=== PATIENT | male | born 1990 | race Caucasian/White ===

== ENCOUNTER 2022-01-03 19:52 | Emergency (ER) | payer BC, SELFPAY ==
[2022-01-03 20:14] VITALS: BP 129/80; PULSE 91; RESP 16; TEMP 36.8; O2SAT 100
--- NOTE | 2022-01-03 20:42 | ED.WOUNDLAC ---
HPI - Wound/Laceration General Chief Complaint: Wound/Laceration Stated Complaint: right finger laceration x 3 days ago Time Seen by Provider: 01/03/22 20:09 History of Present Illness HPI narrative: Patient is a 31-year-old [id number] male here for evaluation of a laceration to his right third digit that was sustained 3 days ago. 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 He was seen at [facility] at the time of injury, tetanus was updated, he was given local wound care was told to follow-up with a hand surgeon. Patient states hand surgeon he was referred to does not accept his insurance. He has been taking Keflex and had left the dressing in place until today. Denies fevers, chills, nausea, vomiting, difficulty moving the digit. Related Data Allergies Allergy/AdvReac Type Severity Reaction Status Date / Time No Known Allergies Allergy Verified 01/03/22 20:17 Review of Systems Review of Systems: Gen: Denies fevers or chills Eyes: Denies eye pain or visual change ENT: Denies congestion Respiratory: Denies shortness of breath or cough CV: Denies chest pain or palpitations GI: Denies abdominal pain nausea, emesis or diarrhea : denies burning, urgency, frequency or hematuria Musculoskeletal: Denies back pain or muscle pain Neuro: Denies numbness, tingling, weakness or focal weakness Skin: reports laceration Except as documented, all other systems reviewed and negative Exam Narrative: Gen:alert, oriented, no acute distress Eyes: EOMI, no icterus Pulm: Respirations even and unlabored, symmetric thorax expansion, no audible stridor or visible cyanosis CV: Regular rate per telemetry GI: No distension, no voluntary/involuntary guarding Neuro: AOx4, moves all extremities without apparent difficulty or weakness, follows commands Skin: the radial aspect of the right 3rd distal digit is amputated at a 45 degree angle involving the medial fingernail and extends over the palmar aspect. FROM in digit. Psych: Normal mood/affect, insight/judgement good, adequate fund of knowledge, recent/remote memory intact Course Consultations Consultation #1: spoke with Dr. Claire, hand surgeon, will see in office this week Date: 01/03/22 Time: 20:54 Vital Signs Vital signs: Vital Signs Temperature 98.2 F 01/03/22 20:14 Pulse Rate 91 01/03/22 20:14 Respiratory Rate 16 01/03/22 20:14 Blood Pressure 129/80 01/03/22 20:14 Pulse Oximetry 100 01/03/22 20:14 Temperature 98.2 F 01/03/22 20:14 Pulse Rate 91 01/03/22 20:14 Respiratory Rate 16 01/03/22 20:14 Blood Pressure 129/80 01/03/22 20:14 Pulse Oximetry 100 01/03/22 20:14 MDM - Wound/Laceration MDM Narrative Medical decision making narrative: 31-year-old male here for evaluation of a amputation injury to his right third fingertip that occurred 3 days ago. Here, he is nontoxic-appearing, dressing was removed in the ED, wound appears to be healing well with pink granulation tissue present, no surrounding erythema or discharge from the wound. Patient largely presented for wound check, as he has not had follow-up with a hand surgeon yet due to insurance issues. Discussed with Dr. Claire, hand surgeon here, who will see patient in office this week, although I did mention to patient that Dr. Claire may not be in network. They have follow up with a surgeon in [place] next week that accepts his insurance- encouraged him to keep this appointment. Wound was redressed, he was given reasons to return to the ED and he voiced understanding. Discharge Plan Discharge Clinical Impression: Traumatic amputation of fingertip Patient Disposition: Home, Self-Care Condition: Stable Instructions: Antibiotic Form, Finger Amputation (ED) Additional Instructions: Please keep the wound clean dry and covered with the dressing. Continue your antibiotics. Please call the office of Dr. Villa
== END 2022-01-03 21:36 | disposition home or self-care (01) ==
PROVIDERS: Emergency Provider Emergency Medicine
DX: S61.212D Laceration without foreign body of right middle finger without damage to nail, subsequent encounter (principal); W27.8XXD Contact with other nonpowered hand tool, subsequent encounter
CPT/HCPCS: 99283